=== PATIENT | female | born 1970 | race Caucasian/White ===

== ENCOUNTER 2022-01-31 14:04 | Inpatient (IN) | payer MEDICAID ==
[~2022-01-31] VITALS: Ht 162.6 cm; Wt 85.3 kg
[2022-01-31] MEDS ORDERED: IOHEXOL-350 100 ML BOTTLE ONE (14:58)
[2022-01-31 15:25] LABS: BASOPHILS % 0.9 % (0.0-2.0); EOSINOPHILS % 1.5 % (0.0-5.0); HEMATOCRIT. 43.1 % (36.0-48.0); HEMOGLOBIN. 14.3 g/dL (12.0-16.0); LYMPHOCYTES % 42.5 % (20.0-50.0); MEAN CORPUSCULAR HEMOGLOBIN 28.6 pg (28.0-32.0); MEAN CORPUSCULAR VOLUME 86.2 fL (81.0-99.0); MEAN PLATELET VOLUME 9.3 fl (7.4-10.4); NEUTROPHILS % 48.1 % (40.0-76.0); PLATELET 345 x1000/uL (130-400); RED CELL DISTRIBUTION WIDTH 14.3 % (11.6-14.6)
[2022-01-31 15:29] LABS: CHLORIDE 106 mEq/L (98-107)
[2022-01-31] MEDS ORDERED: DEXTROSE 50% WATER 50ML SYRINGE IV ONE (15:30)
[2022-01-31 15:37] LABS: ETHANOL BLOOD < 10 mg/dL
[2022-01-31 16:05] LABS: CLARITY URINE CLEAR (CLEAR); COLOR URINE YELLOW (YELLOW); KETONES URINE NEGATIVE (NEGATIVE); LEUKOCYTE ESTERASE URINE NEGATIVE (NEGATIVE); NITRITE URINE NEGATIVE (NEGATIVE); OCCULT BLOOD URINE NEGATIVE (NEGATIVE); PROTEIN URINE NEGATIVE (NEGATIVE); SPECIFIC GRAVITY URINE 1.011 (1.005-1.030); UROBILINOGEN URINE 0.2 E.U./dL (0.2-1.0)
[2022-01-31 16:21] LABS: *AMPHETAMINES SCREEN URINE NEGATIVE (NEGATIVE); *BARBITURATES SCREEN URINE NEGATIVE (NEGATIVE); *BENZODIAZEPINES SCREEN URINE NEGATIVE (NEGATIVE); *COCAINE SCREEN URINE NEGATIVE (NEGATIVE); CANNABINOID URINE SCREEN NEGATIVE (NEGATIVE); METHADONE URINE SCREEN NEGATIVE (NEGATIVE); OPIATES URINE SCREEN NEGATIVE (NEGATIVE); PHENCYCLIDINE URINE SCREEN NEGATIVE (NEGATIVE)
[2022-01-31] MEDS ORDERED: KETOROLAC 30MG/ML VIAL IV ONE (17:15)
[2022-01-31 19:30] VITALS: BP 103/60
[2022-01-31 20:00] VITALS: BP 103/60
[2022-01-31] MEDS ORDERED: HYDR-4009 PO (20:10)
[2022-01-31] MEDS ORDERED: LOSA1TAB37 PO (20:10)
[2022-01-31] MEDS ORDERED: IBUP-2030 PO (20:10)
[2022-01-31] MEDS ORDERED: CYCL10TA21 PO (20:10)
[2022-01-31] MEDS ORDERED: OMEP20CA14 PO (20:10)
[2022-01-31] MEDS ORDERED: MECL-159 PO (20:10)
[2022-01-31] MEDS ORDERED: CHOL400D7 PO (20:10)
[2022-01-31] MEDS ORDERED: ATOR20TA65 PO (20:10)
[2022-01-31] MEDS ORDERED: GABA-533 PO (20:10)
[2022-01-31] MEDS ORDERED: CLONIDINE 0.1MG TABLET PO PRN (21:45)
[2022-01-31] MEDS ORDERED: ONDANSETRON HCL 4MG/2ML INJ IV PRN (21:45)
[2022-01-31] MEDS ORDERED: NALOXONE HCL 0.4MG/ML VIAL IV PRN (22:00)
[2022-01-31] MEDS: HYDROCODONE/ACETAMINOPHEN 5/325MG TABLET PO PRN (22:20)
[2022-02-01] VITALS (9 sets, daily range): BP systolic 83–122; BP diastolic 44–73
[2022-02-01 00:08] LABS: BASOPHILS % 0.7 % (0.0-2.0); EOSINOPHILS % 1.9 % (0.0-5.0); HEMATOCRIT. 39.4 % (36.0-48.0); LYMPHOCYTES % 40.9 % (20.0-50.0); MEAN CORPUSCULAR HEMOGLOBIN 28.5 pg (28.0-32.0); MEAN CORPUSCULAR VOLUME 86.2 fL (81.0-99.0); MEAN PLATELET VOLUME 9.3 fl (7.4-10.4); MONOCYTES % 5.1 % (2.0-8.0); NEUTROPHILS % 51.4 % (40.0-76.0); PLATELET 320 x1000/uL (130-400); RED BLOOD CELL COUNT 4.57 mill/uL (4.2-5.4); RED CELL DISTRIBUTION WIDTH 13.7 % (11.6-14.6)
[2022-02-01 00:21] LABS: CHLORIDE 107 mEq/L (98-107)
[2022-02-01 00:37] LABS: HDL CHOLESTEROL 41 mg/dL (40-59); LDL CHOLESTEROL 155 mg/dL (5-100)
[2022-02-01] MEDS: MORPHINE SULFATE 2 MG/ML CPJ (NOT FOR IM USE) IV PRN (04:28)
[2022-02-01] MEDS: ENOXAPARIN 40MG/0.4ML SYR SUBCUT SCH (08:33)
[2022-02-01] MEDS: ASPIRIN 81MG TABLET PO SCH (08:33)
[2022-02-01] MEDS ORDERED: DEXT 5%/0.9% NACL 1,000 ML IV ONE (13:45)
[2022-02-01] MEDS: OMEPRAZOLE 20MG CAPSULE EXTENDED RELEASE PO SCH (16:54)
[2022-02-01] MEDS: ACETAMINOPHEN 325MG TABLET PO PRN (16:57)
[2022-02-01 18:04] LABS: CREATINE KINASE 62 IU/L (26-192); CREATINE KINASE MB FRACTION < 1.0 ng/mL (0.5-3.6)
[2022-02-01] MEDS: HYDROCODONE/ACETAMINOPHEN 5/325MG TABLET PO PRN (21:59)
[2022-02-02] VITALS: BP 92/41
[2022-02-02 04:00] VITALS: BP 103/55
[2022-02-02] MEDS: ACETAMINOPHEN 325MG TABLET PO PRN ×2 (05:25→23:59)
[2022-02-02 08:00] VITALS: BP 125/71
[2022-02-02] MEDS: ENOXAPARIN 40MG/0.4ML SYR SUBCUT SCH (08:18)
[2022-02-02] MEDS: ASPIRIN 81MG TABLET PO SCH (08:18)
[2022-02-02] MEDS: OMEPRAZOLE 20MG CAPSULE EXTENDED RELEASE PO SCH (08:18)
[2022-02-02 12:00] VITALS: BP 118/72
[2022-02-02] MEDS: MORPHINE SULFATE 2 MG/ML CPJ (NOT FOR IM USE) IV PRN (15:18)
[2022-02-02 16:00] VITALS: BP 153/77
[2022-02-02 20:00] VITALS: BP 115/73
[2022-02-02] MEDS ORDERED: ATORVASTATIN CALCIUM 40MG TABLET PO SCH (21:00)
[2022-02-03] VITALS: BP 105/56
[2022-02-03 04:00] VITALS: BP 101/61
[2022-02-03 08:00] VITALS: BP 128/80
[2022-02-03] MEDS: ASPIRIN 81MG TABLET PO SCH (09:19)
[2022-02-03] MEDS: OMEPRAZOLE 20MG CAPSULE EXTENDED RELEASE PO SCH (09:19)
[2022-02-03] MEDS: ENOXAPARIN 40MG/0.4ML SYR SUBCUT SCH (09:19)
[2022-02-03] MEDS: HYDROCODONE/ACETAMINOPHEN 5/325MG TABLET PO PRN (09:25)
[2022-02-03 12:00] VITALS: BP 118/73
[2022-02-03 16:00] VITALS: BP 121/72
[2022-02-03] MEDS ORDERED: LIP40 PO (16:35)
[2022-02-03] MEDS ORDERED: ASPI-1160 PO (16:35)
[2022-02-03 17:16] VITALS: BP 121/72
[2022-02-04] MEDS ORDERED: FAMOTIDINE 20MG TABLET PO SCH (07:40)
== END 2022-02-03 18:10 | disposition home health service (06) | DRG 47 ==
LOC: ER 14:04 → 7WST 16:41 → EDBEDREQ 16:55 → EDBEDREQSVC 16:55 → ENRESERV 17:27 → 7WST 19:50
PROVIDERS: ADMIT Internal Medicine; ATTEND Internal Medicine
DX: G45.9 Transient cerebral ischemic attack, unspecified (principal); R47.01 Aphasia; E78.00 Pure hypercholesterolemia, unspecified; I25.10 Atherosclerotic heart disease of native coronary artery without angina pectoris; E78.5 Hyperlipidemia, unspecified; R47.81 Slurred speech; R07.89 Other chest pain; I10 Essential (primary) hypertension; M54.12 Radiculopathy, cervical region; F43.9 Reaction to severe stress, unspecified; E66.9 Obesity, unspecified; Z68.32 Body mass index [BMI] 32.0-32.9, adult; Z79.899 Other long term (current) drug therapy
CPT/HCPCS: 36415; 70496; 70498; 70551; 71045; 80048; 80053; 80061; 80305; 80320; 81003; 82550; 82553; 82962; 84439; 84443; 84484; 85025; 92610; 93005; 93306; 97162; 97166; 99291; J1650; J1885; J2270; Q9967; G0480